=== PATIENT | female | born 1980 | race Asian ===

== ENCOUNTER → 2018-08-13 | Outpatient (CLI) | payer OTHER ==
--- NOTE | 2018-08-13 14:51 | RADIOLOGY IMAGING REPORT ---
FACILITY: [facility] [place] PATIENT NAME: Khris Henning : 1980 MR: [id number] V: [id number] EXAM DATE: ORDERING PHYSICIAN: EMILEE LU TECHNOLOGIST: Location: [facility] Patient: Khris Henning : 1980 Visit/Account:[id number] Date of Sevice: 08/13/2018 THYROID HISTORY: Low TSH COMPARISON: None. FINDINGS: Thyroid size: Normal Right lobe: 4.7 x 1.7 x 1.3 cm Left lobe: 5.4 x 1.3 x 1.6 cm Isthmus: 0.37 cm Thyroid nodules Right lobe: : On the right, a very small 4 mm hypoechoic nodule is noted. Left lobe: Within the midportion of the left lobe, there is a heterogeneous nodule with regions of isointense hypoechogenicity. Mildly increased vascularity is seen around the edges. This measur es 1.2 x 0.5 x 0.9 cm. Along the lowest tip of the lobe there is a mixed echogenicity hypoechoic nod ule with a central calcification which measures 4 x 3 x 4.6 mm. Isthmus: None discrete. Thyroid vascularity: Mildly increased vascularity. IMPRESSION: Mildly hypervascular thyroid gland. There is a 1.2 cm solid nodule within the midportion of the left gland. This is indeterminant by BOO criteria. Given its size over 1 cm, tissue sampling is recomme nded. Report Dictated By: Ata Mcneil MD at 08/13/2018 2:23 PM Report E-Signed By: Ata Mcneil MD at 08/13/2018 2:47 PM WSN:[email or web address]
--- NOTE | 2018-08-14 01:45 | RADIOLOGY IMAGING REPORT ---
FACILITY: [facility] PATIENT NAME: Khris Henning : 1980 MR: [id number] V: [id number] EXAM DATE: ORDERING PHYSICIAN: EMILEE LU TECHNOLOGIST: Location: [facility] Patient: Khris Henning : 1980 Visit/Account:[id number] Date of Sevice: 08/13/2018 Targeted ultrasound of the neck: Indication: Palpable abnormality on the posterior aspect of the right side of the neck for 2 years. Technique: Targeted imaging was performed over the area of interest. Comparison: None. Findings: At the location of the patient's symptoms, there is a well-circumscribed lymph node, measur ing 1.3 x 0.8 x 0.3 cm. The lymph node morphology appears unremarkable. No additional lymph nodes are clearly identified. The study is otherwise unremarkable. Impression: As above, a small benign-appearing lymph node is identified. Report Dictated By: Felix Banuelos MD at 08/14/2018 1:37 AM Report E-Signed By: Felix Banuelos MD at 08/14/2018 1:42 AM WSN:[id number]
== END ==
LOC: MAMO 10:24
PROVIDERS: ATTEND Physician Assistant
DX: Z12.31 Encounter for screening mammogram for malignant neoplasm of breast (principal); R22.1 Localized swelling, mass and lump, neck
CPT/HCPCS: 76536; 76999

== ENCOUNTER → 2018-08-26 | Outpatient (CLI) | payer OTHER ==
[2018-08-26 08:51] LABS: INR 0.94
--- NOTE | 2018-08-27 09:31 | RADIOLOGY IMAGING REPORT ---
FACILITY: [facility] PATIENT NAME: Khris Henning : 1980 MR: [id number] V: [id number] EXAM DATE: [id number] ORDERING PHYSICIAN: EMILEE LU TECHNOLOGIST: Location: [facility] Patient: Khris Henning : 1980 Visit/Account:[id number] Date of Sevice: 08/26/2018 Exam type: THYROID BIOPSY FINE NEEDLE ASP History: Left thyroid nodule Comparison: Thyroid ultrasound August 13, 2018. Findings: Informed consent was obtained. The left side of the patient's neck was prepped and draped usual ster ile fashion. Local anesthesia was accomplished 1% lidocaine. Under sonographic guidance four 25-gau ge FNA biopsies were obtained through the hypoechoic nodule in the lateral aspect of the left lobe th e thyroid. Samples were given to the phlebotomy technologist for processing. The procedure was accom plished without apparent complication. IMPRESSION: 1. Successful FNA biopsy of the hypoechoic nodule lateral aspect left lobe the thyroid gland Report Dictated By: Najma Kwan MD at 08/26/2018 3:52 PM Report E-Signed By: Najma Kwan MD at 08/26/2018 3:53 PM WSN:[email or web address]
== END ==
LOC: US 00:42
PROVIDERS: ATTEND Physician Assistant
DX: Z01.818 Encounter for other preprocedural examination (principal); Z01.812 Encounter for preprocedural laboratory examination; E04.1 Nontoxic single thyroid nodule; F04 Amnestic disorder due to known physiological condition
CPT/HCPCS: 10022; 36415; 76942; 85610; 88104; 88172